=== PATIENT | male | born 1985 | race African-American/Black ===

== ENCOUNTER → 2020-12-23 | Outpatient (CLI) | payer OTHER ==
--- NOTE | 2020-12-23 12:17 | EEG ---
DATE OF SERVICE: 12/23/2020 ELECTROENCEPHALOGRAM EEG NUMBER: [id number], performed on 12/23/2020. OBJECTIVE: The patient is a 35-year-old male with possible seizures. He had a syncopal episode. DESCRIPTION: This is a digital study. Electrodes are placed according to the international 10-20 system. Bipolar and referential montages are available. Activation procedures typically include hyperventilation and intermittent photic stimulation. INTERPRETATION: The waking background consists of 9-10 Hz, 50-100 microvolt activity, symmetrically distributed over parietooccipital regions and reactive to eye opening. Hyperventilation and intermittent photic stimulation are noncontributory. Stage I sleep was achieved with normal electroencephalogram patterns. IMPRESSION: This electroencephalogram with the patient awake and asleep is within normal limits. There is no focal, paroxysmal, or epileptiform activity. Thank you for letting us help with the patient's care. BEULAH/LORENA DR: Abdulkadir TID: [id number] CC: Randi Gaming, PEDRITO HICKS MD
== END ==
LOC: RT 09:15
PROVIDERS: ATTEND Psychiatry & Neurology Neurology with Special Qualifications in Child Neurology
DX: R55 Syncope and collapse (principal)
CPT/HCPCS: 95816